=== PATIENT | male | born 1940 | race Caucasian/White ===

== ENCOUNTER 2024-11-26 14:26 | Emergency (ER) | payer OTHER, SELFPAY ==
[2024-11-26 14:27] VITALS: BP 109/57
[2024-11-26 14:51] LABS: Hematocrit 34.0 % (39.0-52.0); Hemoglobin 11.3 g/dL (13.0-18.0); Mean Corp Hgb Conc. 33.2 g/dL (33.0-37.0); Mean Corpuscular Volume 87.0 fL (80.0-94.0); Nucleated Red Blood Cells % 0 % (-); Platelet Count 255 10^3/uL (130-400); Red Cell Dist. Width 14.7 % (11.5-14.5)
[2024-11-26 15:21] LABS: ALT (SGPT) 15 U/L (0-50); AST (SGOT) 25 U/L (17-59); Albumin 3.0 g/dl (3.5-5.0); Alkaline Phosphatase 88 U/L (38-126); Blood Urea Nitrogen 20 mg/dl (9-20); Calcium 8.5 mg/dl (8.4-10.2); Carbon Dioxide 24 mmol/L (22-30); Chloride 109 mmol/L (98-107); Glucose 153 mg/dl (70-99); Potassium 4.8 mmol/L (3.5-5.1); Sodium 136 mmol/L (135-145); Total Protein 5.8 g/dl (6.3-8.2); eGFR > 60.00
[2024-11-26 16:23] VITALS: BP 116/55
[2024-11-26 16:24] VITALS: BMI 24.9
--- NOTE | 2024-11-26 16:28 | ED.GENMED ---
History of Present Illness
General
Chief Complaint: Skin Problem
Source: patient
Exam Limitations: none
Time Seen by Provider: 11/26/24 16:16
Nursing documentation reviewed up to this point in time: agreed with
History of Present Illness
History of Present Illness:
84-year-old male with history of HTN, HLD, chronic bilateral LE lymphedema followed weekly at [facility] and weekly wound care nurses to change dressings at home, here for generalized itchy rash that started about 3 weeks ago. Wound
care doctor told him to apply Cortisone 10 spray which he has been doing with no relief. The rash is generalized. Denies fever/chills. Denies N/V/D/C. Denies any recent antibiotics. Only new drug is Spironolactone 25 mg daily started one month ago,
he stopped it after 1-2 weeks as it made him urinate too much, family got a urinal and he then started it up again 5 days ago. Denies SOB, CP.
States legs are no more swollen than usual.
Past History
Past History
ED Past Medical History: HTN, Hypercholesterolemia and Other (Chronic bilateral lower extremity lymphedema with seeping wounds followed by wound care at [facility]. Visiting nurse weekly to change dressings.)
ED Past Surgical History: Cardiac (Angioplasty) and Orthopedic (Left hip, right knee replaced)
Review of Systems
Review of Systems
Allergies reviewed?: Yes
All Other Systems: ROS reviewed and negative except as documented in HPI and ROS
Constitutional: Denies fever or chills
Respiratory: Denies trouble breathing
Cardiac: Denies chest pain
ABD/GI: Denies abdominal pain, nausea, vomiting or diarrhea
: Denies dysuria
Musculoskeletal: Reports edema (Bilateral lower extremity edema, chronic, dressings intact.)
Skin: Reports itching and rash
Phy Exam
Physical Exam
Physical Exam:
GENERAL: No acute distress. A&Ox3.
CONSTITUTIONAL: Afebrile.
EYES: clear, conjunctivae normal
ENMT: moist mucus membranes, Pharynx nl no oral lesions, pain or swelling
RESPIRATORY: Regular respirations, nonlabored, lungs clear.
CARDIOVASCULAR: Regular rate and rhythm, no murmurs, no rubs.
GI: Soft, nontender, normal BS
MUSCULOSKELETAL: Moves with ease. Well perfused.
SKIN: Warm, dry, generalized pruritic macular rash over trunk and extremities. No blisters. Bilateral lower extremities have dry dressings intact from wound care.
PSYCH: Normal mood and affect. Well kept, interactive and appropriate
NEUROLOGIC: Awake, alert and oriented. No focal neurological deficits
Course
Orders/Labs/Results
Orders:
Orders
11/26/24 14:39
C-Reactive Protein Urgent
Comment: ADD ON
Complete Blood Count/With Diff Urgent
Comprehensive Metabolic Panel Urgent
Erythrocyte Sed Rate Urgent
Comment: ADD ON
11/26/24 16:43
Dexamethasone [Decadron] 10 mg PO NOW STA
11/26/24 16:55
Famotidine [Pepcid] 40 mg PO NOW STA
11/26/24 16:59
Add On- LAB Urgent
Tests Added?: TSH reflex to T4
11/26/24 17:13
Add On- LAB Urgent
Tests Added?: crp, sed rate
Abnormal Lab Results
11/26/24
14:39
RBC 3.91 L 10^6/uL
(4.70-6.10)
Hgb 11.3 L g/dL
(13.0-18.0)
Hct 34.0 L %
(39.0-52.0)
RDW 14.7 H %
(11.5-14.5)
Absolute Lymphs (auto) 0.7 L 10^3/uL
(1.2-3.4)
Neutrophils % 75.4 H %
(42.2-75.2)
Lymphocytes % 13.2 L %
(20.5-51.1)
Monocytes % 10.6 H %
(1.7-9.3)
ESR 53 H mm/hour
(0-20)
Chloride 109 H mmol/L
(98-107)
Glucose 153 H mg/dl
(70-99)
C-Reactive Protein 68.80 H mg/L
(0.0-10.00)
Total Protein 5.8 L g/dl
(6.3-8.2)
Albumin 3.0 L g/dl
(3.5-5.0)
11/26/24 14:39
11/26/24 14:39
Vital Signs
Initial and Last Documented VS:
Initial Vital Signs
Temp Pulse Resp BP Pulse Ox
98.6 F 88 16 109/57 96
11/26/24 14:27 11/26/24 14:27 11/26/24 14:27 11/26/24 14:27 11/26/24 14:27
Last Documented Vital Signs
Temp Pulse Resp BP Pulse Ox
98.6 F 88 16 116/55 98
11/26/24 14:27 11/26/24 14:27 11/26/24 14:27 11/26/24 16:23 11/26/24 17:15
MDM/Problems Addressed
Differential Diagnosis Includes:
Atopic dermatitis, urticaria/contact dermatitis allergic reaction,TEN, DRESS, SJS, vasculitis
MDM/Problems Addressed:
84-year-old male with history of HTN, HLD, chronic bilateral LE lymphedema followed weekly at [facility] and weekly wound care nurses to change dressings at home, here for generalized itchy rash that started about 3 weeks ago. Wound
care doctor told him to apply Cortisone 10 spray which he has been doing with no relief. The rash is generalized. Denies fever/chills. Denies N/V/D/C. Denies any recent antibiotics. Only new drug is Spironolactone 25 mg daily started one month ago,
he stopped it after 1-2 weeks as it made him urinate too much, family got a urinal and he then started it up again 5 days ago. Denies SOB, CP.
States legs are no more swollen than usual.
Afebrile
CBC unremarkable
With no SOB, CP, calf pain, no fever, WBC is normal, symptoms in his legs are chronic, do not suspect DVT or cellulitis, no indication for further evaluation of the lower extremities as he is already closely followed and has racing board marker coming
tomorrow
CMP no clinically significant abnormality
Sed rate, CRP mildly elevated, not clinically significant
Generalized pruritic rash of unknown etiology
No known exposures
No infectious symptoms
No mucus membrane involvement
No significant pain associated with the rash.
Plan: Steroid taper, Pepcid (at risk for falls with Benadryl)
Son at bedside will f/u with PCP tomorrow.
*Pulse Oximetry
SaO2: 96
Oxygen Mode of Delivery: Room air
Patient hypoxic: not evaluated
*Critical Care Note
Total Time (30-74mins, 75-104mins- exclusive of procedures): Not Applicable
ED Attending Note
-
Portions of this chart may have been created with voice recognition software.� Occasional wrong word or��sound alike� substitutions may have occurred due to the inherent limitations of voice recognition software.
Discharge Plan
Departure
Patient Disposition: Home (Routine Discharge)
Date of Disposition: 11/26/24
Time of Disposition: 17:25
Patient with high blood pressure during this ER visit?: No
Condition: Fair
Discharge Problem:
Generalized rash
Instructions: Skin Rash (DC)
Prescriptions:
New
prednisone 10 mg Tablet
See Rx Instructions .ROUTE .COMPLEX Qty: 30 0RF
Rx Instructions:
Take By Mouth:
40 mg daily x3 days, 30 mg daily x3 days,
20 mg daily x3 days, 10 mg daily x3 days.
famotidine [Pepcid] 40 mg tablet
40 mg PO DAILY Qty: 14 0RF
Referrals:
Darrion Ocampo MD [Family Provider] - Tomorrow
Activity Restrictions/Additional Instructions:
As we discussed, I sent a prescription to your pharmacy for Prednisone taper (start it tomorrow as you were given a dose of steroid here today) and Pepcid (antihistamine) 40 mg daily for 2 weeks.
See your doctor in 1-2 days for recheck
It may take 2-3 days for the steroids to kick in.
Small percentage of people taking Spironolactone get itch rash. Please discuss with your doctor.
Interventions
Interventions:
*Risk Screen - Suicide Last Done: 11/26/24 14:35
*General Assessment Last Done: 11/26/24 16:25
*Neglect/Abuse Screening Last Done: 11/26/24 14:35
*ED- Fall Risk Assessment Last Done: 11/26/24 16:25
*ED COVID-19 Vaccine History Last Done: 11/26/24 16:25
*Nursing Disposition Last Done: 11/26/24 17:35
ED-Skin Assessment Last Done: 11/26/24 16:25
Discharge Date and Time
Discharge Date/Time: 11/26/24 17:49
Print Language: SPANISH
[2024-11-26] MEDS: PEPCID 40 MG PO (17:18)
[2024-11-26] MEDS: DECADRON 10 MG PO (17:18)
[2024-11-26 18:08] LABS: C-Reactive Protein 68.80 mg/L (0.0-10.00)
== END 2024-11-26 17:49 | disposition home or self-care (01) ==
LOC: EMR 14:26
PROVIDERS: Emergency Medicine; EMERGENCY PHYSICIAN Student in an Organized Health Care Education/Training Program; FAMILY PHYSICIAN Internal Medicine
DX: R21 Rash and other nonspecific skin eruption (principal); E78.00 Pure hypercholesterolemia, unspecified; I89.0 Lymphedema, not elsewhere classified; I10 Essential (primary) hypertension; Z79.899 Other long term (current) drug therapy
CPT/HCPCS: 99283; 80053; 85025; 85652; 86140